=== PATIENT | male | born 1990 ===

== ENCOUNTER 2024-05-17 05:22 | Day surgery (SDC) | payer OTHER ==
[2024-05-17] MEDS ORDERED: METRONIDAZOLE/SODIUM CHLORIDE 500 MG/100 ML PIGGYBACK IV ONE (06:54)
[2024-05-17] MEDS ORDERED: CEFTRIAXONE SODIUM 2,000 MG VIAL ONE (06:54)
[2024-05-17] MEDS ORDERED: PERCOCET 5-3251 EACH PO (09:51)
[2024-05-17] MEDS ORDERED: PEPCID AC20 MG PO (09:51)
[2024-05-17] MEDS ORDERED: INTESTINEX680 M1 PO (09:52)
[2024-05-17] MEDS ORDERED: DICY20TA PO (09:52)
[2024-05-17] MEDS ORDERED: MORPHINE SULFATE 4 MG/ML VIAL IV ONE (10:45)
== END 2024-05-17 12:00 | disposition home or self-care (01) ==
LOC: CIR.AMB 05:22 → O/R 05:22 → SURH 05:22 → CIR.AMB 12:00 → O/R 12:00 → SURH 12:45 → EDSTATUS 12:45 → SURH 13:45
PROVIDERS: ATTEND Surgery
DX: K35.33 Acute appendicitis with perforation, localized peritonitis, and gangrene, with abscess (principal)